=== PATIENT | female | born 1980 | race Caucasian/White ===

== ENCOUNTER 2019-04-21 13:46 | Emergency (ER) | payer OTHER ==
[~2019-04-21] VITALS: Ht 160 cm; Wt 54.4 kg
--- NOTE | 2019-04-21 13:51 | NUR ---
PT AMB TO ER BED 2
[2019-04-21 13:56] VITALS: BP 196/127
--- NOTE | 2019-04-21 14:04 | NUR ---
PT TO ED FOR C/O LOW BACK PAIN, SOB, AND HEMATURIA. DENIES DYSURIA. LUNG SOUNDS CTA. NO DISTRESS NOTED. PT STATES "I THINK IM SHORT OF BREATH BECAUSE MY BACK HURTS" DENIES INJURY/TRAUMA. PT IN BED FOR MD SOUZA.
--- NOTE | 2019-04-21 15:43 | NUR ---
PT'S BP 182/116MMHG. DR. TAMAYO NOTIFIED.
[2019-04-21] MEDS ORDERED: LABETALOL 100 MG/20 ML VIAL IVP ONE (16:05)
[2019-04-21 16:49] LABS: BASOPHILS # (AUTO) 0.1 K/uL (0.00-0.22); BASOPHILS % (AUTO) 0.9 % (0.0-2.0); EOSINOPHILS # (AUTO) 0.2 K/uL (0-0.4); EOSINOPHILS % (AUTO) 3.4 % (0.0-4.0); HEMATOCRIT 38.6 % (36-48); HEMOGLOBIN 12.7 g/dL (12.0-16.0); LYMPHOCYTES # (AUTO) 2.4 K/uL (2.5-16.5); LYMPHOCYTES % (AUTO) 43.3 % (20.5-51.1); MEAN CORPUSCULAR HEMOGLOBIN 28 pg (27-31); MEAN CORPUSCULAR HGB CONC 33 g/dL (33-37); MEAN CORPUSCULAR VOLUME 86.4 fL (80-94); MONOCYTES # (AUTO) 0.4 K/uL (0.8-1.0); MONOCYTES % (AUTO) 6.6 % (1.7-9.3); NEUTROPHILS # (AUTO) 2.6 K/uL (1.8-7.7); NEUTROPHILS % (AUTO) 45.8 % (42.2-75.2); PLATELET COUNT (AUTO) 253 K/uL (140-450); RED BLOOD CELL COUNT(AUTO) 4.47 MIL/uL (4.20-5.40); RED CELL DISTRIBUTION WIDTH 14.5 % (11.6-13.7); WHITE BLOOD COUNT (AUTO) 5.6 K/uL (4.8-10.8)
[2019-04-21 17:10] LABS: ANION GAP 12.7 (8-16); CARBON DIOXIDE 26.3 mmol/L (21-32); CREATININE 0.8 mg/dL (0.6-1.3)
--- NOTE | 2019-04-21 17:10 | NUR ---
PT STATES SHE IS FEELING BETTER AND RESTING IN BED AT THIS TIME.
[2019-04-21 17:49] LABS: APPEARANCE,URINE CLOUDY (CLEAR); BILIRUBIN,URINE NEGATIVE (NEGATIVE); BLOOD, URINE 3+ (NEGATIVE); COLOR,URINE YELLOW (YELLOW); LEUKOCYTE ESTERASE ,URINE 1+ (NEGATIVE); NITRITE, URINE POSITIVE (NEGATIVE); PH,URINE 6.5 (5.0-9.0); UGLUCOSE NEGATIVE (NEGATIVE)
[2019-04-21] MEDS ORDERED: POTASSIUM CHLORIDE 10 MEQ TABER PO ONE (18:10)
[2019-04-21 18:11] LABS: RBC,URINE 11-20 (MOD) /HPF (0-5); WBC,URINE TOO MANY TO COUNT /HPF (0-5)
[2019-04-21] MEDS ORDERED: IBUPROFEN 400 MG TAB PO ONE (18:20)
[2019-04-21] MEDS ORDERED: cefTRIAXone 1,000 MG VIAL ONE (18:33)
--- NOTE | 2019-04-21 18:50 | NUR ---
PT IS RESTING IN BED WITH EYES OPENED. VSS.
--- NOTE | 2019-04-21 19:20 | NUR ---
Pt report given to APRIL Caba. Transfer of care at this time.
[2019-04-21 19:23] VITALS: BP 161/102
--- NOTE | 2019-04-21 19:24 | NUR ---
Patient discharged with v/s stable. Written and verbal after care instructions given and explained. Patient alert, oriented and verbalized understanding of instructions. Ambulatory with steady gait. All questions addressed prior to discharge. ID band removed. Patient advised to follow up with PMD. Rx of LISINOPRIL, KEFLEX, NAPROXEN given. Patient educated on indication of medication including possible reaction and side effects. Opportunity to ask questions provided and answered.
== END 2019-04-21 19:23 | disposition home or self-care (01) ==
LOC: MED 13:46
DX: N39.0 Urinary tract infection, site not specified (principal); I10 Essential (primary) hypertension; R07.89 Other chest pain; F17.200 Nicotine dependence, unspecified, uncomplicated
CPT/HCPCS: 36415; 80048; 81001; 81025; 84703; 85025; 87086; 87186; 93005; 96365; 96375; 99284; J0696; J3490